=== PATIENT | male | born 1970 | race Caucasian/White ===

== ENCOUNTER 2018-10-17 02:42 | Emergency (ER) | payer MEDICAID ==
[~2018-10-17] VITALS: Ht 182.9 cm; Wt 90.7 kg
--- NOTE | 2018-10-17 03:15 | NUR ---
Dr. Duncan at bedside for MSE.
[2018-10-17] MEDS ORDERED: CLINDAMYCIN HCL 300 MG CAPSULE ONE (03:28)
[2018-10-17] MEDS ORDERED: HYDROMORPHONE 1 MG/1 ML DISP.SYRIN ONE (03:28)
[2018-10-17] MEDS ORDERED: diphenhydrAMINE 50 MG/1 ML VIAL ONE (03:29)
[2018-10-17] MEDS ORDERED: LIDOCAINE HCL 1% 20 ML VIAL IJ ONE (03:30)
[2018-10-17] MEDS ORDERED: CLINDAMYCIN HCL 150 MG CAPSULE PO ONE (03:30)
[2018-10-17] MEDS ORDERED: diphenhydrAMINE 50 MG/1 ML VIAL IM ONE (03:30)
[2018-10-17] MEDS ORDERED: HYDROMORPHONE 1 MG/1 ML DISP.SYRIN IM ONE (03:30)
--- NOTE | 2018-10-17 03:40 | NUR ---
Xray at bedside.
[2018-10-17] MEDS ORDERED: NEOMY/BACITRA/POLYMYXIN B OINT UD PACKET TP ONE ×2 (03:57→04:15)
--- NOTE | 2018-10-17 04:17 | NUR ---
Note scot in EDM - 10/17/18 at 0421 by REGLA Patient discharged to home in stable conditon. Written and verbal after care instructions given. Patient verbalizes understanding of instructions. Pt ambulated out of ER with steady gait, no acute signs of distress, VSS, all belongings taken.
--- NOTE | 2018-10-17 04:17 | NUR ---
Patient given written and verbal discharge instructions. Patient verbalizes understanding of instructions. Patient is ambulatory with steady gait. Refuses offer of jail placement. Patient given list of available shelters in surrounding area. Pt states he is staying at a friend's place at the moment and will arrange his own transportation. VSS, no acute signs of distress, all belongings taken.
== END 2018-10-17 04:22 | disposition home or self-care (01) ==
LOC: ER 02:42
DX: L03.115 Cellulitis of right lower limb (principal); L02.415 Cutaneous abscess of right lower limb; F17.210 Nicotine dependence, cigarettes, uncomplicated; F15.10 Other stimulant abuse, uncomplicated; Z59.0 Homelessness
CPT/HCPCS: 10060; 73590; 96372 ×2; 99283; J1170; J1200; A4217; A4663